=== PATIENT | male | born 1945 | race Caucasian/White ===

== ENCOUNTER 2018-04-13 12:10 | Inpatient (IN) | payer OTHER ==
[2018-04-13] MEDS ORDERED: Sodium Chloride 0.9% 10 ML Syringe FLUSH PRN (12:17)
[2018-04-13] MEDS ORDERED: Ondansetron 4 MG/2 ML SDV IVPUSH ONE (12:26)
[2018-04-13] MEDS ORDERED: Famotidine 20 MG/2 ML SDV IVPUSH ONE (12:26)
[2018-04-13] MEDS ORDERED: Pantoprazole 40 MG Vial IVPUSH ONE (12:42)
[2018-04-13] MEDS ORDERED: Sodium Chloride 0.9% 1,000 ML IV SCH ×2 (12:45→13:45)
--- NOTE | 2018-04-13 12:57 | EDM.PDOC ---
ED HPI GENERAL MEDICAL PROBLEM - General Chief Complaint: Gastrointestinal Problem Stated Complaint: [facility] Time Seen by Provider: 04/13/18 12:16 Source of Information: Reports: Patient, EMS, RN Notes Reviewed - History of Present Illness INITIAL COMMENTS - FREE TEXT/NARRATIVE: Patient is a 72-year-old male who has been brought here [facility] for evaluation of severe weakness and dizziness. He started having dark tarry stools about 6 days ago. He has been having 2-4 dark tarry stools per day. He has had a couple of episodes of vomiting of what he describes as being coffee ground type emesis. He has continued to drink water and other nonalcohol type of fluids "to maintain hydration. He has been waiting for this to get better but symptoms have been getting worse to the point where this morning after having been to the toilet he could not get up and walk without passing out. He managed to crawl to his phone and was able to call for help and that way. He has had no chest pain or difficulty breathing. No abdominal pain. He is on Plavix having had some type of arterial bypass procedure left lower extremity about a year ago. He has smoked for many years but has recently quit in the last year or 2. Sounds like he has probably drank alcohol more heavily in the past but now he states only a very occasional beer. He is not diabetic. 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: IV/IO, See EMS Report - Related Data Allergies Allergy/AdvReac Type Severity Reaction Status Date / Time No Known Allergies Allergy Verified 04/13/18 12:18 Home Meds: Home Meds Cephalexin [Keflex] 500 mg PO QID 04/13/18 [History] Clopidogrel [Plavix] 75 mg PO DAILY 04/13/18 [History] Cyanocobalamin (Vitamin B-12) [Vitamin B12] 2,500 mcg PO DAILY 04/13/18 [History ] Gabapentin [Neurontin] 100 mg PO TID 04/13/18 [History] Hydrochlorothiazide 25 mg PO DAILY 04/13/18 [History] Losartan [Cozaar] 100 mg PO DAILY 04/13/18 [History] Rosuvastatin Calcium [Crestor] 40 mg PO BEDTIME 04/13/18 [History] amLODIPine Besylate [Amlodipine Besylate] 5 mg PO DAILY 04/13/18 [History] tiZANidine HCl [Tizanidine HCl] 4 mg PO DAILY 04/13/18 [History] Past Medical History Cardiovascular History: Reports: Blood Clots/VTE/DVT, High Cholesterol, Hypertension Neurological History: Reports: Neuropathy, Peripheral - Past Surgical History Cardiovascular Surgical History: Reports: Percutaneous Transluminal Angioplasty Musculoskeletal Surgical History: Reports: Amputation Social & Family History - Tobacco Use Smoking Status *Q: Former Smoker Used Tobacco, but Quit: Yes Month/Year Tobacco Last Used: 2017 - Caffeine Use Caffeine Use: Reports: None - Recreational Drug Use Recreational Drug Use: No ED ROS GENERAL - Review of Systems Review Of Systems: See Below Constitutional: Reports: Diaphoresis (Gone). Denies: Fever, Chills HEENT: Denies: Throat Pain Respiratory: Denies: Shortness of Breath, Wheezing, Pleuritic Chest Pain Cardiovascular: Denies: Chest Pain GI/Abdominal: Reports: Hematemesis (Coffee-ground twice in the past 4-5 days), Melena, Nausea, Vomiting. Denies: Abdominal Pain Musculoskeletal: Reports: No Symptoms Skin: Denies: Rash Neurological: Reports: Dizziness (Severe), Syncope (Either did pass out this morning or had very near syncope after trying to get up from the toilet) ED EXAM, GI/ABD - Physical Exam Exam: See Below General Appearance: Alert, Other (Extremely pale) Eyes: Bilateral: Normal Appearance Throat/Mouth: Normal Inspection, Normal Oropharynx Head: Atraumatic Neck: Supple Respiratory/Chest: No Respiratory Distress, Lungs Clear, Normal Breath Sounds Cardiovascular: Regular Rate, Rhythm GI/Abdominal Exam: Soft, Non-Tender. No: Guarding Rectal (Males) Exam: Black Stool (Strongly heme positive) Back Exam: No: CVA Tenderness (L), CVA Tenderness (R) Extremities: Normal Inspection. No: Pedal Edema Neurological: Alert, No Motor/Sensory Deficits Skin Exam: Dry, Pallor EKG INTERPRETATION EKG Date: 04/13/18 Rhythm: NSR [place]: Normal P-Wave: Present QRS: Other (Nonspecific IVCD) ST-T: Normal Course - Vital Signs Last Recorded V/S: Last Vital Signs Temp 97.6 F 04/13/18 14:04 Pulse 72 04/13/18 14:04 Resp 16 04/13/18 14:04 BP 64/61 L 04/13/18 14:04 Pulse Ox - Orders/Labs/Meds Orders: Active Orders 24 hr Category Date Time Status EKG 12 Lead [EKG Documentation Completion] [RC] STAT Care 04/13/18 12:18 Active Peripheral IV Care [RC] . DIRECTED Care 04/13/18 12:18 Active PACKED CELLS [RED BLOOD CELLS LP] [BBK] Stat Lab 04/13/18 12:50 Results PATIENT RETYPE [BBK] Stat Lab 04/13/18 12:50 Results TYPE AND SCREEN [BBK] Stat Lab 04/13/18 12:50 Results Potassium Chloride [KCl 10 MEQ in Water 100 ML] 10 meq Med 04/13/18 13:45 Active Premix Bag 1 bag IV Q1H Sodium Chloride 0.9% [Normal Saline] 1,000 ml Med 04/13/18 12:45 Active IV ASDIRECTED Sodium Chloride 0.9% [Normal Saline] 1,000 ml Med 04/13/18 13:45 Active IV ASDIRECTED Sodium Chloride 0.9% [Normal Saline] 100 ml Med 04/13/18 14:00 Active IV ASDIRECTED Sodium Chloride 0.9% [Saline Flush] Med 04/13/18 12:17 Active 10 ml FLUSH ASDIRECTED PRN Peripheral IV Insertion Adult [OM.PC] Stat Oth 04/13/18 12:18 Ordered Transfuse PRBC [Transfuse Red Blood Cells] [COMM] Stat Oth 04/13/18 14:03 Ordered Medication Orders Sodium Chloride (Normal Saline) 1,000 mls @ 999 mls/hr IV ASDIRECTED ROSANNA Last Admin: 04/13/18 12:33 Dose: 999 mls/hr Sodium Chloride (Normal Saline) 1,000 mls @ 250 mls/hr IV ASDIRECTED ROSANNA Last Admin: 04/13/18 13:41 Dose: 250 mls/hr Potassium Chloride 10 meq/ (Premix) 100 mls @ 100 mls/hr IV Q1H ROSANNA Stop: 04/13/18 17:44 Last Admin: 04/13/18 13:41 Dose: 100 mls/hr Sodium Chloride (Normal Saline) 100 mls @ 2 mls/hr IV ASDIRECTED ROSANNA Sodium Chloride (Saline Flush) 10 ml FLUSH ASDIRECTED PRN PRN Reason: Keep Vein Open Last Admin: 04/13/18 12:31 Dose: 10 ml Labs: Laboratory Tests 04/13/18 04/13/18 04/13/18 Range/Units 12:50 12:50 12:50 WBC 18.49 H (4.23-9.07) K/mm3 RBC 2.06 L (4.63-6.08) M/mm3 Hgb 5.9 L* (13.7-17.5) gm/L Hct 18.8 L (40.1-51.0) % MCV 91.3 (79.0-92.2) fl MCH 28.6 (25.7-32.2) pg MCHC 31.4 L (32.2-35.5) g/dl RDW Std Deviation 43.0 (35.1-43.9) fL Plt Count 307 (163-337) K/mm3 MPV 10.9 (9.4-12.3) fl Neut % (Auto) 84.4 H (34.0-67.9) % Lymph % (Auto) 7.0 L (21.8-53.1) % [place] % (Auto) 7.0 (5.3-12.2) % Eos % (Auto) 0.9 (0.8-7.0) Baso % (Auto) 0.2 (0.1-1.2) % Neut # (Auto) 15.58 H (1.78-5.38) K/mm3 Lymph # (Auto) 1.30 L (1.32-3.57) K/mm3 [place] # (Auto) 1.30 H (0.30-0.82) K/mm3 Eos # (Auto) 0.17 (0.04-0.54) K/mm3 Baso # (Auto) 0.04 (0.01-0.08) K/mm3 Manual Slide Review Abnormal smear PT 11.9 (9.5-12.1) SECONDS INR 1.09 APTT 24 (24-31) SECONDS Sodium 141 (136-145) mEq/L Potassium 2.5 L (3.5-5.1) mEq/L Chloride 106 (98-107) mEq/L Carbon Dioxide 20 L (21-32) mEq/L Anion Gap 17.5 H (5-15) BUN 71 H (7-18) mg/dL Creatinine 3.3 H (0.7-1.3) mg/dL Est Cr Clr Drug Dosing 22.39 mL/min Estimated GFR (MDRD) 19 (>60) mL/min BUN/Creatinine Ratio 21.5 H (14-18) Glucose 103 (83-115) mg/dL Lactic Acid (0.4-2.0) mmol/L Calcium 8.5 (8.5-10.1) mg/dL Total Bilirubin 0.3 (0.2-1.0) mg/dL AST 13 L (15-37) U/L ALT < 6 L (16-63) U/L Alkaline Phosphatase 68 (46-116) U/L Total Protein 6.0 L (6.4-8.2) g/dl Albumin 2.3 L (3.4-5.0) g/dl Globulin 3.7 gm/dL Albumin/Globulin Ratio 0.6 L (1-2) Blood Type Gel Antibody Screen Crossmatch 04/13/18 04/13/18 Range/Units 12:50 12:50 WBC (4.23-9.07) K/mm3 RBC (4.63-6.08) M/mm3 Hgb (13.7-17.5) gm/L Hct (40.1-51.0) % MCV (79.0-92.2) fl MCH (25.7-32.2) pg MCHC (32.2-35.5) g/dl RDW Std Deviation (35.1-43.9) fL Plt Count (163-337) K/mm3 MPV (9.4-12.3) fl Neut % (Auto) (34.0-67.9) % Lymph % (Auto) (21.8-53.1) % [place] % (Auto) (5.3-12.2) % Eos % (Auto) (0.8-7.0) Baso % (Auto) (0.1-1.2) % Neut # (Auto) (1.78-5.38) K/mm3 Lymph # (Auto) (1.32-3.57) K/mm3 [place] # (Auto) (0.30-0.82) K/mm3 Eos # (Auto) (0.04-0.54) K/mm3 Baso # (Auto) (0.01-0.08) K/mm3 Manual Slide Review PT (9.5-12.1) SECONDS INR APTT (24-31) SECONDS Sodium (136-145) mEq/L Potassium (3.5-5.1) mEq/L Chloride (98-107) mEq/L Carbon Dioxide (21-32) mEq/L Anion Gap (5-15) BUN (7-18) mg/dL Creatinine (0.7-1.3) mg/dL Est Cr Clr Drug Dosing mL/min Estimated GFR (MDRD) (>60) mL/min BUN/Creatinine Ratio (14-18) Glucose (83-115) mg/dL Lactic Acid 5.5 H (0.4-2.0) mmol/L Calcium (8.5-10.1) mg/dL Total Bilirubin (0.2-1.0) mg/dL AST (15-37) U/L ALT (16-63) U/L Alkaline Phosphatase (46-116) U/L Total Protein (6.4-8.2) g/dl Albumin (3.4-5.0) g/dl Globulin gm/dL Albumin/Globulin Ratio (1-2) Blood Type O POSITIVE Gel Antibody Screen Negative Crossmatch See Detail Meds: Medications Generic Name Dose Route Start Last Admin Trade Name Freq PRN Reason Stop Dose Admin Sodium Chloride 1,000 mls @ 999 mls/hr 04/13/18 12:45 04/13/18 12:33 Normal Saline IV 999 mls/hr ASDIRECTED ROSANNA Administration Sodium Chloride 1,000 mls @ 250 mls/hr 04/13/18 13:45 04/13/18 13:41 Normal Saline IV 250 mls/hr ASDIRECTED ROSANNA Administration Potassium Chloride 10 meq/ 100 mls @ 100 mls/hr 04/13/18 13:45 04/13/18 13:41 Premix IV 04/13/18 17:44 100 mls/hr Q1H ROSANNA Administration Sodium Chloride 100 mls @ 2 mls/hr 04/13/18 14:00 Normal Saline IV ASDIRECTED ROSANNA Sodium Chloride 10 ml 04/13/18 12:17 04/13/18 12:31 Saline Flush FLUSH 10 ml ASDIRECTED PRN Administration Keep Vein Open Discontinued Medications Generic Name Dose Route Start Last Admin Trade Name Freq PRN Reason Stop Dose Admin Famotidine 20 mg 04/13/18 12:26 04/13/18 12:30 Pepcid IVPUSH 04/13/18 12:27 20 mg ONETIME ONE Administration Ondansetron HCl 4 mg 04/13/18 12:26 04/13/18 12:30 Zofran IVPUSH 04/13/18 12:27 4 mg ONETIME ONE Administration Pantoprazole Sodium 40 mg 04/13/18 12:42 04/13/18 12:49 Protonix Iv IVPUSH 04/13/18 12:43 40 mg ONETIME ONE Administration - Re-Assessments/Exams Free Text/Narrative Re-Assessment/Exam: 04/13/18 13:02 Patient had blood pressure of about 75 systolic in route by ambulance and continues with blood pressure of 75/35 on arrival to the ED. That is lying flat , heart rate in the 70s. He is extremely pale, stool melanotic strongly heme positive. I have ordered type and screen along with order for 2 units packed cells for transfusion. It is expected that he will be quite severely anemic. He' s never had transfusion in the past. No history of bleeding ulcer or known peptic ulcer disease. 04/13/18 13:35. Hemoglobin 5.9, other labs as documented, potassium 2.5 started running some potassium 10 mEq IV over 2 hours. Blood pressure improved to 110 systolic after 1.75 L normal saline. Blood should be ready any time and will be started as soon as available. I discussed this with Dr. Viktor Baltazar, general surgeon on-call so he is aware and patient will be admitted by our Hospitalist regional clinical research associate Dr. Veronica for further evaluation and treatment Departure - Departure Time of Disposition: 13:50 Disposition: Admitted As Inpatient 67 Condition: Serious Clinical Impression: Hypokalemia, Renal insufficiency, Dehydration GI bleed Qualifiers: GI bleed type/associated pathology: unspecified gastrointestinal hemorrhage type Qualified Code(s): K92.2 - Gastrointestinal hemorrhage, unspecified - Discharge Information Referrals: Sarika Gannon DO [Primary Care Provider] - Forms: ED Department Discharge ED Communication - Discussed Case With (1) Discussed Case With (1): Admitting Provider (Dr Veronica, decision to admit at about 13:45.) - My Orders Last 24 Hours: My Active Orders 04/13/18 12:17 Sodium Chloride 0.9% [Saline Flush] 10 ml FLUSH ASDIRECTED PRN 04/13/18 12:18 EKG 12 Lead [EKG Documentation Completion] [RC] STAT Peripheral IV Care [RC] . DIRECTED Peripheral IV Insertion Adult [OM.PC] Stat 04/13/18 12:45 Sodium Chloride 0.9% [Normal Saline] 1,000 ml IV ASDIRECTED 04/13/18 12:50 PACKED CELLS [RED BLOOD CELLS LP] [BBK] Stat PATIENT RETYPE [BBK] Stat TYPE AND SCREEN [BBK] Stat 04/13/18 13:45 Potassium Chloride [KCl 10 MEQ in Water 100 ML] 10 meq Premix Bag 1 bag IV Q1H Sodium Chloride 0.9% [Normal Saline] 1,000 ml IV ASDIRECTED 04/13/18 14:00 Sodium Chloride 0.9% [Normal Saline] 100 ml IV ASDIRECTED 04/13/18 14:03 Transfuse PRBC [Transfuse Red Blood Cells] [COMM] Stat - Assessment/Plan Last 24 Hours: My Active Orders 04/13/18 12:17 Sodium Chloride 0.9% [Saline Flush] 10 ml FLUSH ASDIRECTED PRN 04/13/18 12:18 EKG 12 Lead [EKG Documentation Completion] [RC] STAT Peripheral IV Care [RC] . DIRECTED Peripheral IV Insertion Adult [OM.PC] Stat 04/13/18 12:45 Sodium Chloride 0.9% [Normal Saline] 1,000 ml IV ASDIRECTED 04/13/18 12:50 PACKED CELLS [RED BLOOD CELLS LP] [BBK] Stat PATIENT RETYPE [BBK] Stat TYPE AND SCREEN [BBK] Stat 04/13/18 13:45 Potassium Chloride [KCl 10 MEQ in Water 100 ML] 10 meq Premix Bag 1 bag IV Q1H Sodium Chloride 0.9% [Normal Saline] 1,000 ml IV ASDIRECTED 04/13/18 14:00 Sodium Chloride 0.9% [Normal Saline] 100 ml IV ASDIRECTED 04/13/18 14:03 Transfuse PRBC [Transfuse Red Blood Cells] [COMM] Stat
[2018-04-13] MEDS: Potassium Chloride 10 MEQ in Premix Bag 1 BAG IV SCH ×4 (13:41→23:50)
[2018-04-13] MEDS ORDERED: Sodium Chloride 0.9% 100 ML IV SCH (14:00)
[2018-04-13] MEDS ORDERED: Pneumococcal Polyvalent-23 Vaccine 0.5 ML SDV IM ONE (15:32)
--- NOTE | 2018-04-13 16:48 | PCM.HP ---
H&P History of Present Illness - General Date of Service: 04/13/18 Admit Problem/Dx: Admission Diagnosis/Problem Admission Diagnosis/Problem GI bleed requiring more than 4 units of blood in 24 hours, ICU, or surgery Source of Information: Provider History Limitations: Reports: No Limitations - History of Present Illness Initial Comments - Free Text/Narative: 72 year old male who has been bleeding when passing stool, presents with extreme dizziness/weakness. On the day of admission, he had a bloody bowel movement and was unable to ambulate. The patient crawled on the floor to his phone, EMS was called to his home. Vital signs noted hypotension, 64/61. he was typed and screened in the ED. A transfusion of PRBCs was started in the ED. An additional type and crossed was performed; the patient is expected to receive 2 units of PRBCs before repeating a Hgb. The general surgeon generation engineer was notified by the ED and called Onset of Symptoms: Reports: Gradual Symptom Onset Date: 04/08/18 Duration of Symptoms: Reports: Day(s):, Getting Worse Location: Reports: Generalized Quality: Reports: Same as Previous Episode Severity: Moderate Improves with: Reports: Medication Worsens with: Reports: Movement Associated Symptoms: Reports: Diaphoresis, Shortness of Breath, Other ( presyncopal) - Related Data Allergies/Adverse Reactions: Allergies Allergy/AdvReac Type Severity Reaction Status Date / Time No Known Allergies Allergy Verified 04/13/18 12:18 Home Medications: Home Meds Cephalexin [Keflex] 500 mg PO QID 04/13/18 [History] Clopidogrel [Plavix] 75 mg PO DAILY 04/13/18 [History] Cyanocobalamin (Vitamin B-12) [Vitamin B12] 2,500 mcg PO DAILY 04/13/18 [History ] Gabapentin [Neurontin] 100 mg PO TID 04/13/18 [History] Hydrochlorothiazide 25 mg PO DAILY 04/13/18 [History] Losartan [Cozaar] 100 mg PO DAILY 04/13/18 [History] Rosuvastatin Calcium [Crestor] 40 mg PO BEDTIME 04/13/18 [History] amLODIPine Besylate [Amlodipine Besylate] 5 mg PO DAILY 04/13/18 [History] tiZANidine HCl [Tizanidine HCl] 4 mg PO QPM PRN 04/13/18 [History] Past Medical History HEENT History: Reports: Impaired Vision Cardiovascular History: Reports: Blood Clots/VTE/DVT, High Cholesterol, Hypertension Respiratory History: Reports: None Gastrointestinal History: Reports: None Genitourinary History: Reports: Pyelonephritis, Other (See Below) Other Genitourinary History: as a child Musculoskeletal History: Reports: Back Pain, Chronic Neurological History: Reports: Neuropathy, Peripheral Endocrine/Metabolic History: Reports: None Other Hematologic History: too many RBCs per patient report but now resolved Immunologic History: Reports: None Oncologic (Cancer) History: Reports: None Dermatologic History: Reports: None - Infectious Disease History Infectious Disease History: Reports: Hepatitis C, Measles, Mumps - Past Surgical History HEENT Surgical History: Reports: Tonsillectomy Cardiovascular Surgical History: Reports: Percutaneous Transluminal Angioplasty Respiratory Surgical History: Reports: None GI Surgical History: Reports: Colonoscopy Male Surgical History: Reports: None Neurological Surgical History: Reports: None Musculoskeletal Surgical History: Reports: Amputation Other Musculoskeletal Surgeries/Procedures:: left 3rd, 4th and 5th digit Dermatological Surgical History: Reports: None Social & Family History - Family History Family Medical History: Noncontributory - Tobacco Use Smoking Status *Q: Former Smoker Years of Tobacco use: 52 Packs/Tins Daily: 2 Used Tobacco, but Quit: Yes Month/Year Tobacco Last Used: July 2017 Second Hand Smoke Exposure: No - Caffeine Use Caffeine Use: Reports: Soda - Alcohol Use Days Per Week of Alcohol Use: 0 - Recreational Drug Use Recreational Drug Use: No H&P Review of Systems - Review of Systems: Review Of Systems: See Below General: Reports: Weakness, Fatigue, Weight Loss HEENT: Reports: No Symptoms Pulmonary: Reports: Shortness of Breath Cardiovascular: Reports: Palpitations, Lightheadedness Gastrointestinal: Reports: Abdominal Pain (no), Black Stool, Nausea, Vomiting Genitourinary: Reports: No Symptoms Musculoskeletal: Reports: No Symptoms Skin: Reports: Dryness, Change in Color (black toes) Psychiatric: Reports: No Symptoms Neurological: Reports: Dizziness, Weakness, Other (presyncopal) Hematologic/Lymphatic: Reports: Anemia (acute blood loss) Immunologic: Reports: No Symptoms Exam - Exam Exam: See Below - Vital Signs Vital Signs: Last Vital Signs Temp 36.5 C 04/13/18 15:13 Pulse 78 04/13/18 15:50 Resp 16 04/13/18 15:13 BP 94/72 04/13/18 15:13 Pulse Ox 100 04/13/18 15:50 Weight: 76.34 kg - Exam Quality Assessment: Supplemental Oxygen, DVT Prophylaxis General: Alert, Oriented, Cooperative HEENT: Conjunctiva Clear, EOMI, Hearing Intact, Nares Patent, Other (pallor), PERRLA Neck: Trachea Midline Lungs: Normal Respiratory Effort, Decreased Breath Sounds Cardiovascular: Regular Rate, Regular Rhythm GI/Abdominal Exam: Normal Bowel Sounds, Soft, Non-Tender, No Organomegaly, No Distention (Male) Exam: Deferred Rectal (Males) Exam: Deferred Back Exam: Normal Inspection Extremities: Slow Capillary Refill, Pallor Skin: Cool Neurological: Cranial Nerves Intact, Normal Speech Neuro Extensive - Mental Status: Alert, Oriented x3, Normal Mood/Affect, Normal Cognition, Memory Intact Neuro Extensive - Motor, Sensory, Reflexes: CN II-XII Intact Psychiatric: Alert, Normal Affect, Normal Mood - Patient Data Lab Results Last 24 hrs: Laboratory Results - last 24 hr 04/13/18 04/13/18 04/13/18 Range/Units 12:50 12:50 12:50 WBC 18.49 H (4.23-9.07) K/mm3 RBC 2.06 L (4.63-6.08) M/mm3 Hgb 5.9 L* (13.7-17.5) gm/L Hct 18.8 L (40.1-51.0) % MCV 91.3 (79.0-92.2) fl MCH 28.6 (25.7-32.2) pg MCHC 31.4 L (32.2-35.5) g/dl RDW Std Deviation 43.0 (35.1-43.9) fL Plt Count 307 (163-337) K/mm3 MPV 10.9 (9.4-12.3) fl Neut % (Auto) 84.4 H (34.0-67.9) % Lymph % (Auto) 7.0 L (21.8-53.1) % [place] % (Auto) 7.0 (5.3-12.2) % Eos % (Auto) 0.9 (0.8-7.0) Baso % (Auto) 0.2 (0.1-1.2) % Neut # (Auto) 15.58 H (1.78-5.38) K/mm3 Lymph # (Auto) 1.30 L (1.32-3.57) K/mm3 [place] # (Auto) 1.30 H (0.30-0.82) K/mm3 Eos # (Auto) 0.17 (0.04-0.54) K/mm3 Baso # (Auto) 0.04 (0.01-0.08) K/mm3 Manual Slide Review Abnormal smear PT 11.9 (9.5-12.1) SECONDS INR 1.09 APTT 24 (24-31) SECONDS Sodium 141 (136-145) mEq/L Potassium 2.5 L (3.5-5.1) mEq/L Chloride 106 (98-107) mEq/L Carbon Dioxide 20 L (21-32) mEq/L Anion Gap 17.5 H (5-15) BUN 71 H (7-18) mg/dL Creatinine 3.3 H (0.7-1.3) mg/dL Est Cr Clr Drug Dosing 22.39 mL/min Estimated GFR (MDRD) 19 (>60) mL/min BUN/Creatinine Ratio 21.5 H (14-18) Glucose 103 (83-115) mg/dL Lactic Acid (0.4-2.0) mmol/L Calcium 8.5 (8.5-10.1) mg/dL Total Bilirubin 0.3 (0.2-1.0) mg/dL AST 13 L (15-37) U/L ALT < 6 L (16-63) U/L Alkaline Phosphatase 68 (46-116) U/L Total Protein 6.0 L (6.4-8.2) g/dl Albumin 2.3 L (3.4-5.0) g/dl Globulin 3.7 gm/dL Albumin/Globulin Ratio 0.6 L (1-2) Blood Type Gel Antibody Screen Crossmatch 04/13/18 04/13/18 Range/Units 12:50 12:50 WBC (4.23-9.07) K/mm3 RBC (4.63-6.08) M/mm3 Hgb (13.7-17.5) gm/L Hct (40.1-51.0) % MCV (79.0-92.2) fl MCH (25.7-32.2) pg MCHC (32.2-35.5) g/dl RDW Std Deviation (35.1-43.9) fL Plt Count (163-337) K/mm3 MPV (9.4-12.3) fl Neut % (Auto) (34.0-67.9) % Lymph % (Auto) (21.8-53.1) % [place] % (Auto) (5.3-12.2) % Eos % (Auto) (0.8-7.0) Baso % (Auto) (0.1-1.2) % Neut # (Auto) (1.78-5.38) K/mm3 Lymph # (Auto) (1.32-3.57) K/mm3 [place] # (Auto) (0.30-0.82) K/mm3 Eos # (Auto) (0.04-0.54) K/mm3 Baso # (Auto) (0.01-0.08) K/mm3 Manual Slide Review PT (9.5-12.1) SECONDS INR APTT (24-31) SECONDS Sodium (136-145) mEq/L Potassium (3.5-5.1) mEq/L Chloride (98-107) mEq/L Carbon Dioxide (21-32) mEq/L Anion Gap (5-15) BUN (7-18) mg/dL Creatinine (0.7-1.3) mg/dL Est Cr Clr Drug Dosing mL/min Estimated GFR (MDRD) (>60) mL/min BUN/Creatinine Ratio (14-18) Glucose (83-115) mg/dL Lactic Acid 5.5 H (0.4-2.0) mmol/L Calcium (8.5-10.1) mg/dL Total Bilirubin (0.2-1.0) mg/dL AST (15-37) U/L ALT (16-63) U/L Alkaline Phosphatase (46-116) U/L Total Protein (6.4-8.2) g/dl Albumin (3.4-5.0) g/dl Globulin gm/dL Albumin/Globulin Ratio (1-2) Blood Type O POSITIVE Gel Antibody Screen Negative Crossmatch See Detail Result Diagrams: 04/13/18 22:00 04/14/18 00:28 Problem List Initiated/Reviewed/Updated: Yes Orders Last 24hrs: Active Orders 24 hr Category Date Time Status Admission Status [Patient Status] [ADT] Routine ADT 04/13/18 14:31 Active EKG 12 Lead [EKG Documentation Completion] [RC] STAT Care 04/13/18 12:18 Active PACKED CELLS [RED BLOOD CELLS LP] [BBK] Stat Lab 04/13/18 12:50 Results PATIENT RETYPE [BBK] Stat Lab 04/13/18 12:50 Results TYPE AND SCREEN [BBK] Stat Lab 04/13/18 12:50 Results Clopidogrel [Plavix] Med 04/14/18 09:00 Active 75 mg PO DAILY Cyanocobalamin (Vitamin B12) [Vitamin B12] Med 04/14/18 09:00 Active 2,500 mcg PO DAILY Gabapentin [Neurontin] Med 04/13/18 21:00 Active 100 mg PO TID Potassium Chloride [KCl 10 MEQ in Water 100 ML] 10 meq Med 04/13/18 13:45 Active Premix Bag 1 bag IV Q1H Rosuvastatin [Crestor] Med 04/13/18 21:00 Active 40 mg PO BEDTIME Sodium Chloride 0.9% [Normal Saline] 1,000 ml Med 04/13/18 12:45 Active IV ASDIRECTED Sodium Chloride 0.9% [Normal Saline] 1,000 ml Med 04/13/18 13:45 Active IV ASDIRECTED Sodium Chloride 0.9% [Normal Saline] 100 ml Med 04/13/18 14:00 Active IV ASDIRECTED Sodium Chloride 0.9% [Saline Flush] Med 04/13/18 12:17 Active 10 ml FLUSH ASDIRECTED PRN tiZANidine [Zanaflex] Med 04/14/18 09:00 Active 4 mg PO DAILY Peripheral IV Insertion Adult [OM.PC] Stat Oth 04/13/18 12:18 Ordered Transfuse PRBC [Transfuse Red Blood Cells] [COMM] Stat Oth 04/13/18 14:03 Ordered Resuscitation Status Routine Resus Stat 04/13/18 15:42 Ordered Medication Orders Clopidogrel Bisulfate (Plavix) 75 mg PO DAILY [facility] Cyanocobalamin (Vitamin B12) 2,500 mcg PO DAILY [facility] Gabapentin (Neurontin) 100 mg PO TID ROSANNA Sodium Chloride (Normal Saline) 1,000 mls @ 999 mls/hr IV ASDIRECTED ROSANNA Last Admin: 04/13/18 12:33 Dose: 999 mls/hr Sodium Chloride (Normal Saline) 1,000 mls @ 250 mls/hr IV ASDIRECTED ROSANNA Last Admin: 04/13/18 13:41 Dose: 250 mls/hr Potassium Chloride 10 meq/ (Premix) 100 mls @ 100 mls/hr IV Q1H [facility] Stop: 04/13/18 17:44 Last Admin: 04/13/18 16:03 Dose: Admin: 04/13/18 13:41 Dose: 100 mls/hr Sodium Chloride (Normal Saline) 100 mls @ 2 mls/hr IV ASDIRECTED ROSANNA Rosuvastatin Calcium (Crestor) 40 mg PO BEDTIME [facility] Sodium Chloride (Saline Flush) 10 ml FLUSH ASDIRECTED PRN PRN Reason: Keep Vein Open Last Admin: 04/13/18 12:31 Dose: 10 ml Tizanidine HCl (Zanaflex) 4 mg PO DAILY [facility] Assessment/Plan Comment:: Impression: Hypotension, acute GI blood loss; Hgb 5.9 Symptomatic, presyncopal Acute Renal Failure, GFR 19 (BUN 71/Cr 3.3) Leukocyctosis; query soft tissue infection with chronic skin changes PVD, query aorto-bifem procedure Abnormal electrolytes History of ETOH Plan: Type and Cross, 2 units PRBCs; additional T/C for 2 more units Keep Hgb>9.0; maintain MAP/SBP, 65/100 Closely monitor for hemodynamic change from acute blood loss (BM) Lasix 40 mg IVP q 2 units Protonix IV; hold hypertensive meds H Pylori test Home meds Daily labs, correct electrolytes Gen Surg consult--pending. Empiric ATB DVT/GI prophylaxis Consult PT/OT/CM
[2018-04-13] MEDS ORDERED: Acetaminophen 325 MG Tab PO PRN (17:10)
[2018-04-13] MEDS ORDERED: Temazepam 7.5 MG Cap PO PRN (18:08)
[2018-04-13] MEDS ORDERED: Piperacillin/Tazobactam 4.5 GM in Sodium Chloride 0.9% 100 ML IV ONE (18:15)
--- NOTE | 2018-04-13 19:16 | PCM.CONSN ---
- General Info Date of Service: 04/13/18 - Patient Data Vitals - Most Recent: Last Vital Signs Temp 97.7 F 04/13/18 17:19 Pulse 83 04/13/18 17:19 Resp 16 04/13/18 16:57 BP 98/63 04/13/18 17:19 Pulse Ox 100 04/13/18 16:51 Weight - Most Recent: 76.34 kg I&O - Last 24 Hours: Intake & Output 04/13/18 04/13/18 04/13/18 07:59 15:59 23:59 Intake Total 0 430 Balance 0 430 Lab Results Last 24 Hours: Laboratory Results - last 24 hr 04/13/18 04/13/18 04/13/18 Range/Units 12:50 12:50 12:50 WBC 18.49 H (4.23-9.07) K/mm3 RBC 2.06 L (4.63-6.08) M/mm3 Hgb 5.9 L* (13.7-17.5) gm/L Hct 18.8 L (40.1-51.0) % MCV 91.3 (79.0-92.2) fl MCH 28.6 (25.7-32.2) pg MCHC 31.4 L (32.2-35.5) g/dl RDW Std Deviation 43.0 (35.1-43.9) fL Plt Count 307 (163-337) K/mm3 MPV 10.9 (9.4-12.3) fl Neut % (Auto) 84.4 H (34.0-67.9) % Lymph % (Auto) 7.0 L (21.8-53.1) % [place] % (Auto) 7.0 (5.3-12.2) % Eos % (Auto) 0.9 (0.8-7.0) Baso % (Auto) 0.2 (0.1-1.2) % Neut # (Auto) 15.58 H (1.78-5.38) K/mm3 Lymph # (Auto) 1.30 L (1.32-3.57) K/mm3 [place] # (Auto) 1.30 H (0.30-0.82) K/mm3 Eos # (Auto) 0.17 (0.04-0.54) K/mm3 Baso # (Auto) 0.04 (0.01-0.08) K/mm3 Manual Slide Review Abnormal smear PT 11.9 (9.5-12.1) SECONDS INR 1.09 APTT 24 (24-31) SECONDS Sodium 141 (136-145) mEq/L Potassium 2.5 L (3.5-5.1) mEq/L Chloride 106 (98-107) mEq/L Carbon Dioxide 20 L (21-32) mEq/L Anion Gap 17.5 H (5-15) BUN 71 H (7-18) mg/dL Creatinine 3.3 H (0.7-1.3) mg/dL Est Cr Clr Drug Dosing 22.39 mL/min Estimated GFR (MDRD) 19 (>60) mL/min BUN/Creatinine Ratio 21.5 H (14-18) Glucose 103 (83-115) mg/dL Lactic Acid (0.4-2.0) mmol/L Calcium 8.5 (8.5-10.1) mg/dL Total Bilirubin 0.3 (0.2-1.0) mg/dL AST 13 L (15-37) U/L ALT < 6 L (16-63) U/L Alkaline Phosphatase 68 (46-116) U/L Total Protein 6.0 L (6.4-8.2) g/dl Albumin 2.3 L (3.4-5.0) g/dl Globulin 3.7 gm/dL Albumin/Globulin Ratio 0.6 L (1-2) Blood Type Gel Antibody Screen Crossmatch 04/13/18 04/13/18 Range/Units 12:50 12:50 WBC (4.23-9.07) K/mm3 RBC (4.63-6.08) M/mm3 Hgb (13.7-17.5) gm/L Hct (40.1-51.0) % MCV (79.0-92.2) fl MCH (25.7-32.2) pg MCHC (32.2-35.5) g/dl RDW Std Deviation (35.1-43.9) fL Plt Count (163-337) K/mm3 MPV (9.4-12.3) fl Neut % (Auto) (34.0-67.9) % Lymph % (Auto) (21.8-53.1) % [place] % (Auto) (5.3-12.2) % Eos % (Auto) (0.8-7.0) Baso % (Auto) (0.1-1.2) % Neut # (Auto) (1.78-5.38) K/mm3 Lymph # (Auto) (1.32-3.57) K/mm3 [place] # (Auto) (0.30-0.82) K/mm3 Eos # (Auto) (0.04-0.54) K/mm3 Baso # (Auto) (0.01-0.08) K/mm3 Manual Slide Review PT (9.5-12.1) SECONDS INR APTT (24-31) SECONDS Sodium (136-145) mEq/L Potassium (3.5-5.1) mEq/L Chloride (98-107) mEq/L Carbon Dioxide (21-32) mEq/L Anion Gap (5-15) BUN (7-18) mg/dL Creatinine (0.7-1.3) mg/dL Est Cr Clr Drug Dosing mL/min Estimated GFR (MDRD) (>60) mL/min BUN/Creatinine Ratio (14-18) Glucose (83-115) mg/dL Lactic Acid 5.5 H (0.4-2.0) mmol/L Calcium (8.5-10.1) mg/dL Total Bilirubin (0.2-1.0) mg/dL AST (15-37) U/L ALT (16-63) U/L Alkaline Phosphatase (46-116) U/L Total Protein (6.4-8.2) g/dl Albumin (3.4-5.0) g/dl Globulin gm/dL Albumin/Globulin Ratio (1-2) Blood Type O POSITIVE Gel Antibody Screen Negative Crossmatch See Detail Med Orders - Current: Current Medications Acetaminophen (Tylenol) 650 mg PO Q4H PRN PRN Reason: Pain/Fever Last Admin: 04/13/18 17:27 Dose: 650 mg Cyanocobalamin (Vitamin B12) 2,500 mcg PO DAILY [facility] Gabapentin (Neurontin) 100 mg PO TID ROSANNA Piperacillin Sod/Tazobactam (Sod 4.5 gm/ Sodium Chloride) 100 mls @ 25 mls/hr IV Q8H [facility]AN[facility] Pantoprazole Sodium (Protonix Iv) 40 mg IVPUSH Q12H [facility] Potassium Chloride (Klor-Con M20) 40 meq PO TID [facility] Stop: 04/15/18 15:01 Rosuvastatin Calcium (Crestor) 40 mg PO BEDTIME [facility] Sodium Chloride (Saline Flush) 10 ml FLUSH ASDIRECTED PRN PRN Reason: Keep Vein Open Last Admin: 04/13/18 12:31 Dose: 10 ml Temazepam (Restoril) 7.5 mg PO BEDTIME PRN PRN Reason: Insomnia Tizanidine HCl (Zanaflex) 4 mg PO BEDTIME [facility] Discontinued Medications Clopidogrel Bisulfate (Plavix) 75 mg PO DAILY [facility] Famotidine (Pepcid) 20 mg IVPUSH ONETIME ONE Stop: 04/13/18 12:27 Last Admin: 04/13/18 12:30 Dose: 20 mg Sodium Chloride (Normal Saline) 1,000 mls @ 999 mls/hr IV ASDIRECTED [facility] Last Admin: 04/13/18 12:33 Dose: 999 mls/hr Sodium Chloride (Normal Saline) 1,000 mls @ 250 mls/hr IV ASDIRECTED [facility] Last Admin: 04/13/18 13:41 Dose: 250 mls/hr Potassium Chloride 10 meq/ (Premix) 100 mls @ 100 mls/hr IV Q1H [facility] Stop: 04/13/18 17:44 Last Admin: 04/13/18 17:30 Dose: Not Given Sodium Chloride (Normal Saline) 100 mls @ 2 mls/hr IV ASDIRECTED [facility] Piperacillin Sod/Tazobactam (Sod 4.5 gm/ Sodium Chloride) 100 mls @ 200 mls/hr IV ONETIME ONE Stop: 04/13/18 18:44 Last Admin: 04/13/18 18:31 Dose: 200 mls/hr Ondansetron HCl (Zofran) 4 mg IVPUSH ONETIME ONE Stop: 04/13/18 12:27 Last Admin: 04/13/18 12:30 Dose: 4 mg Pantoprazole Sodium (Protonix Iv) 40 mg IVPUSH ONETIME ONE Stop: 04/13/18 12:43 Last Admin: 04/13/18 12:49 Dose: 40 mg Pneumococcal Polyvalent Vaccine (Pneumovax 23) 0.5 ml IM .ONCE ONE Stop: 04/13/18 15:33 Consult PN Assessment/Plan Procedures: Procedures CT ABDOMEN W/O & W/DYE (06/30/14) Problem List Initiated/Reviewed/Updated: Yes Plan: surgical consult dictated JUSTINE
--- NOTE | 2018-04-13 19:51 | CONS ---
CONSULTING PHYSICIAN: Viktor Martinez MD DATE OF CONSULTATION: 04/13/2018 HISTORY OF PRESENT ILLNESS: This is a 72-year-old male, brought here to [facility] because of weakness and dizziness. He started having dark tarry stools around Sunday, with this proceeded 1 episode of vomiting of coffee-ground material and Sunday, he had a dark tarry stool and also vomited coffee-ground material. He continued having black tarry stools, but no further vomiting. He was unable to get out of the toilet and walk today, so he came in. Evaluation in the emergency room demonstrated a hemoglobin of 5.9. The patient states he has a peripheral vascular disease. He has had a femoral-tibial bypass that has been a subject of some concern by Dr. Rojas in [place] and he is waiting for approval for CT to further evaluate this. He was placed on Xarelto, this was discontinued because he has been on Plavix. The patient also states that the last month he has had pain in the back high in between on the right, sometimes on the left. This is especially bad at night, he has been taking Aleve for this pain. He has also had a drinking problem some time ago, he stopped drinking and also stopped smoking. He has had hepatitis C, but has been treated and [facility] feels that this is no longer problem. His liver function has not been a concern to the patient and to the [facility]. The patient has hypertension, high cholesterol, peripheral neuropathy in his feet, and peripheral arterial disease. PAST SURGICAL HISTORY: Has been transluminal angioplasty. SOCIAL HISTORY: He was a former smoker and drinker. No drug use. REVIEW OF SYSTEMS: He has some pain in the feet and some neuropathy, which is quite irritating to the patient. High back pain that has been recent about a month, nausea, vomiting, coffee-ground material, and having daily black tarry stools. The patient denies any chest pain or shortness of breath, cough, hoarseness, or wheezing. He had some near fainting episodes. Denies any rash. Some dizziness. FAMILY HISTORY: Not known. PHYSICAL EXAMINATION: VITAL SIGNS: Temperature 97; pulse 72; respirations 16; blood pressure was 64/61 and this improved with hydration, he is receiving blood as we talk. HEENT: Eyes: Sclerae white. Extraocular muscle motion normal. Oral Cavity: Healthy mucous membrane with mouth and tongue. NECK: Supple. No nodes. No thyromegaly. Trachea midline. LUNGS: Distant breath sounds due to some chronic lung disease. HEART: Heart tones, regular rate. ABDOMEN: Soft. No tenderness, guarding, or rebound. No organomegaly of the liver or spleen. RECTAL: Deferred at this time. BACK: Grossly unremarkable. EXTREMITIES: Show heel ulcer on the right with the 3rd toe with some dry gangrene. Feet are very sensitive throughout. NEUROLOGIC: Cranial nerves 3 through 12 intact. SKIN: Warm and dry. PSYCHIATRIC: Normal affect. LABORATORY DATA: Platelet count is normal. ASSESSMENT: 1. Peripheral vascular disease, peripheral neuropathy due to peripheral vascular disease with a surgery on the left leg. 2. Secondly, there is gastrointestinal bleeding secondary to what sounds like a penetrating duodenal ulcer, aggravated by use to Aleve. RECOMMENDATION: My recommendation is to transfuse, stop the Plavix, put him on a continuous proton pump and test for H. pylori. I will follow. MMODAL /[id number]
[2018-04-13] MEDS ORDERED: Rosuvastatin 10 MG Tab PO SCH (21:00)
[2018-04-13] MEDS ORDERED: tiZANidine 4 MG Tab PO SCH (21:00)
[2018-04-13] MEDS ORDERED: Potassium Chloride 20 MEQ Tab.ER PO SCH (21:00)
[2018-04-13] MEDS ORDERED: Pantoprazole 40 MG Vial IVPUSH SCH (21:00)
[2018-04-13] MEDS ORDERED: Gabapentin 100 MG Cap PO SCH (21:00)
[2018-04-13] MEDS ORDERED: Pantoprazole 80 MG in Sodium Chloride 0.9% 100 ML IV SCH (21:15)
[2018-04-13] MEDS ORDERED: Sodium Chloride 0.9% 250 ML ONE (23:20)
[2018-04-13] MEDS ORDERED: Sodium Chloride 0.9% 50 ML SDV ONE (23:36)
[2018-04-13] MEDS ORDERED: EPINEPHrine 1 MG/ML SDV ONE (23:36)
--- NOTE | 2018-04-13 23:50 | PCM.PREANE ---
Preanesthetic Assessment - Anesthesia/Transfusion/Family Hx Anesthesia History: No Prior Anesthesia Family History of Anesthesia Reaction: No Transfusion History: Prior Transfusion Without Reaction - Review of Systems General: Weakness, Fatigue (6 days) Pulmonary: No Symptoms Cardiovascular: No Symptoms Gastrointestinal: Diarrhea (bloody stools), Melena Neurological: No Symptoms Other: Reports: Liver Problems (hepatitis C) - Physical Assessment NPO Status Date: 04/13/18 NPO Status Time: 12:00 (sip of water with pills) Pulse: 82 O2 Sat by Pulse Oximetry: 100 Respiratory Rate: 18 Blood Pressure: 91/70 Temperature: 98.4 F Vital Signs: Last Vital Signs Temp 98.4 F 04/13/18 20:05 Pulse 82 04/13/18 20:05 Resp 18 04/13/18 20:05 BP 91/70 04/13/18 20:05 Pulse Ox 100 04/13/18 20:05 Height: 6 ft 1 in Weight: 76.34 kg ASA Class: 4E Mental Status: Alert & Oriented x3 Airway Class: Mallampati = 1 Dentition: Reports: Dentures (top), Missing Tooth/Teeth Thyro-Mental Finger Breadths: 3 Mouth Opening Finger Breadths: 3 ROM/Head Extension: Full Lungs: Clear to Auscultation, Normal Respiratory Effort Cardiovascular: Regular Rate, Regular Rhythm - Lab Values: Laboratory Last Values WBC 18.49 K/mm3 (4.23-9.07) H 04/13/18 12:50 RBC 2.06 M/mm3 (4.63-6.08) L 04/13/18 12:50 Hgb 8.5 gm/L (13.7-17.5) L 04/13/18 22:00 Hct 25.2 % (40.1-51.0) L 04/13/18 22:00 MCV 91.3 fl (79.0-92.2) 04/13/18 12:50 MCH 28.6 pg (25.7-32.2) 04/13/18 12:50 MCHC 31.4 g/dl (32.2-35.5) L 04/13/18 12:50 RDW Std Deviation 43.0 fL (35.1-43.9) 04/13/18 12:50 Plt Count 307 K/mm3 (163-337) 04/13/18 12:50 MPV 10.9 fl (9.4-12.3) 04/13/18 12:50 Neut % (Auto) 84.4 % (34.0-67.9) H 04/13/18 12:50 Lymph % (Auto) 7.0 % (21.8-53.1) L 04/13/18 12:50 [place] % (Auto) 7.0 % (5.3-12.2) 04/13/18 12:50 Eos % (Auto) 0.9 (0.8-7.0) 04/13/18 12:50 Baso % (Auto) 0.2 % (0.1-1.2) 04/13/18 12:50 Neut # (Auto) 15.58 K/mm3 (1.78-5.38) H 04/13/18 12:50 Lymph # (Auto) 1.30 K/mm3 (1.32-3.57) L 04/13/18 12:50 [place] # (Auto) 1.30 K/mm3 (0.30-0.82) H 04/13/18 12:50 Eos # (Auto) 0.17 K/mm3 (0.04-0.54) 04/13/18 12:50 Baso # (Auto) 0.04 K/mm3 (0.01-0.08) 04/13/18 12:50 Manual Slide Review Abnormal smear 04/13/18 12:50 PT 11.9 SECONDS (9.5-12.1) 04/13/18 12:50 INR 1.09 04/13/18 12:50 APTT 24 SECONDS (24-31) 04/13/18 12:50 Sodium 141 mEq/L (136-145) 04/13/18 12:50 Potassium 2.5 mEq/L (3.5-5.1) L 04/13/18 12:50 Chloride 106 mEq/L (98-107) 04/13/18 12:50 Carbon Dioxide 20 mEq/L (21-32) L 04/13/18 12:50 Anion Gap 17.5 (5-15) H 04/13/18 12:50 BUN 71 mg/dL (7-18) H 04/13/18 12:50 Creatinine 3.3 mg/dL (0.7-1.3) H 04/13/18 12:50 Est Cr Clr Drug Dosing 22.39 mL/min 04/13/18 12:50 Estimated GFR (MDRD) 19 mL/min (>60) 04/13/18 12:50 BUN/Creatinine Ratio 21.5 (14-18) H 04/13/18 12:50 Glucose 103 mg/dL (83-115) 04/13/18 12:50 Lactic Acid 1.0 mmol/L (0.4-2.0) 04/13/18 22:00 Calcium 8.5 mg/dL (8.5-10.1) 04/13/18 12:50 Total Bilirubin 0.3 mg/dL (0.2-1.0) 04/13/18 12:50 AST 13 U/L (15-37) L 04/13/18 12:50 ALT < 6 U/L (16-63) L 04/13/18 12:50 Alkaline Phosphatase 68 U/L (46-116) 04/13/18 12:50 Total Protein 6.0 g/dl (6.4-8.2) L 04/13/18 12:50 Albumin 2.3 g/dl (3.4-5.0) L 04/13/18 12:50 Globulin 3.7 gm/dL 04/13/18 12:50 Albumin/Globulin Ratio 0.6 (1-2) L 04/13/18 12:50 H. pylori IgG Antibody Positive (NEGATIVE) H 04/13/18 12:50 Blood Type O POSITIVE 04/13/18 12:50 Gel Antibody Screen Negative 04/13/18 12:50 Crossmatch See Detail 04/13/18 12:50 - Allergies Allergies/Adverse Reactions: Allergies Allergy/AdvReac Type Severity Reaction Status Date / Time No Known Allergies Allergy Verified 04/13/18 12:18 - Blood Blood Available: Yes - Acknowledgements Anesthesia Type Planned: General Anesthesia, MAC Pt an Appropriate Candidate for the Planned Anesthesia: Yes Alternatives and Risks of Anesthesia Discussed w Pt/Guardian: Yes Pt/Guardian Understands and Agrees with Anesthesia Plan: Yes PreAnesthesia Questionnaire HEENT History: Reports: Impaired Vision Cardiovascular History: Reports: Blood Clots/VTE/DVT, High Cholesterol, Hypertension Respiratory History: Reports: None Gastrointestinal History: Reports: None, Other (See Below) (gi bleed) Genitourinary History: Reports: Pyelonephritis, Other (See Below) Other Genitourinary History: as a child Musculoskeletal History: Reports: Back Pain, Chronic Neurological History: Reports: Neuropathy, Peripheral Endocrine/Metabolic History: Reports: None Other Hematologic History: too many RBCs per patient report but now resolved Immunologic History: Reports: None Oncologic (Cancer) History: Reports: None Dermatologic History: Reports: None - Infectious Disease History Infectious Disease History: Reports: Hepatitis C, Measles, Mumps - Past Surgical History HEENT Surgical History: Reports: Tonsillectomy Cardiovascular Surgical History: Reports: Percutaneous Transluminal Angioplasty Respiratory Surgical History: Reports: None GI Surgical History: Reports: Colonoscopy Male Surgical History: Reports: None Neurological Surgical History: Reports: None Musculoskeletal Surgical History: Reports: Amputation Other Musculoskeletal Surgeries/Procedures:: left 3rd, 4th and 5th digit Dermatological Surgical History: Reports: None - SUBSTANCE USE Smoking Status *Q: Former Smoker (quit 1 year ago) Tobacco Use Within Last Twelve Months: Cigarettes Second Hand Smoke Exposure: No Days Per Week of Alcohol Use: 0 (more frequent in the past) Recreational Drug Use History: No - HOME MEDS Home Medications: Home Meds Cephalexin [Keflex] 500 mg PO QID 04/13/18 [History] Clopidogrel [Plavix] 75 mg PO DAILY 04/13/18 [History] Cyanocobalamin (Vitamin B-12) [Vitamin B12] 2,500 mcg PO DAILY 04/13/18 [History ] Gabapentin [Neurontin] 100 mg PO TID 04/13/18 [History] Hydrochlorothiazide 25 mg PO DAILY 04/13/18 [History] Losartan [Cozaar] 100 mg PO DAILY 04/13/18 [History] Rosuvastatin Calcium [Crestor] 40 mg PO BEDTIME 04/13/18 [History] amLODIPine Besylate [Amlodipine Besylate] 5 mg PO DAILY 04/13/18 [History] tiZANidine HCl [Tizanidine HCl] 4 mg PO QPM PRN 04/13/18 [History] - CURRENT (IN HOUSE) MEDS Current Meds: Current Medications Acetaminophen (Tylenol) 650 mg PO Q4H PRN PRN Reason: Pain/Fever Last Admin: 04/13/18 17:27 Dose: 650 mg Cyanocobalamin (Vitamin B12) 2,500 mcg PO DAILY [facility] Gabapentin (Neurontin) 100 mg PO TID [facility] Last Admin: 04/13/18 22:09 Dose: 100 mg Piperacillin Sod/Tazobactam (Sod 4.5 gm/ Sodium Chloride) 100 mls @ 25 mls/hr IV Q8H [facility] Pantoprazole Sodium 80 mg/ (Sodium Chloride) 100 mls @ 10 mls/hr IV Q10H [facility] Last Admin: 04/13/18 22:01 Dose: 10 mls/hr Potassium Chloride 10 meq/ (Premix) 100 mls @ 100 mls/hr IV Q1H [facility] Stop: 04/14/18 03:44 Potassium Chloride (Klor-Con M20) 40 meq PO TID [facility] Stop: 04/15/18 15:01 Last Admin: 04/13/18 22:02 Dose: 40 meq Rosuvastatin Calcium (Crestor) 40 mg PO BEDTIME [facility] Last Admin: 04/13/18 22:02 Dose: 40 mg Sodium Chloride (Saline Flush) 10 ml FLUSH ASDIRECTED PRN PRN Reason: Keep Vein Open Last Admin: 04/13/18 12:31 Dose: 10 ml Temazepam (Restoril) 7.5 mg PO BEDTIME PRN PRN Reason: Insomnia Tizanidine HCl (Zanaflex) 4 mg PO BEDTIME [facility] Last Admin: 04/13/18 22:02 Dose: 4 mg Discontinued Medications Clopidogrel Bisulfate (Plavix) 75 mg PO DAILY [facility] Epinephrine HCl (Adrenalin) Confirm Administered Dose 2 mg .ROUTE .STK-MED ONE Stop: 04/13/18 23:37 Famotidine (Pepcid) 20 mg IVPUSH ONETIME ONE Stop: 04/13/18 12:27 Last Admin: 04/13/18 12:30 Dose: 20 mg Sodium Chloride (Normal Saline) 1,000 mls @ 999 mls/hr IV ASDIRECTED [facility] Last Admin: 04/13/18 12:33 Dose: 999 mls/hr Sodium Chloride (Normal Saline) 1,000 mls @ 250 mls/hr IV ASDIRECTED [facility] Last Admin: 04/13/18 13:41 Dose: 250 mls/hr Potassium Chloride 10 meq/ (Premix) 100 mls @ 100 mls/hr IV Q1H [facility] Stop: 04/13/18 17:44 Last Admin: 04/13/18 17:30 Dose: Not Given Sodium Chloride (Normal Saline) 100 mls @ 2 mls/hr IV ASDIRECTED [facility] Piperacillin Sod/Tazobactam (Sod 4.5 gm/ Sodium Chloride) 100 mls @ 200 mls/hr IV ONETIME ONE Stop: 04/13/18 18:44 Last Admin: 04/13/18 18:31 Dose: 200 mls/hr Sodium Chloride (Normal Saline) Confirm Administered Dose 250 mls @ as directed .ROUTE .STK-MED ONE Stop: 04/13/18 23:21 Ondansetron HCl (Zofran) 4 mg IVPUSH ONETIME ONE Stop: 04/13/18 12:27 Last Admin: 04/13/18 12:30 Dose: 4 mg Pantoprazole Sodium (Protonix Iv) 40 mg IVPUSH ONETIME ONE Stop: 04/13/18 12:43 Last Admin: 04/13/18 12:49 Dose: 40 mg Pantoprazole Sodium (Protonix Iv) 40 mg IVPUSH Q12H [facility] Pneumococcal Polyvalent Vaccine (Pneumovax 23) 0.5 ml IM .ONCE ONE Stop: 04/13/18 15:33 Sodium Chloride (Normal Saline) Confirm Administered Dose 50 ml .ROUTE .STK-MED ONE Stop: 04/13/18 23:37
[2018-04-14] MEDS ORDERED: Lidocaine 1% 4 ML ONE (00:01)
[2018-04-14] MEDS ORDERED: fentaNYL 100 MCG/2 ML SDV ONE (00:02)
[2018-04-14] MEDS ORDERED: Ketamine 500 mg/10 ML MDV ONE (00:03)
[2018-04-14] MEDS ORDERED: Midazolam 1 MG/ML 2 ML SDV ONE (00:05)
[2018-04-14] MEDS ORDERED: Albuterol 0.083% 2.5 MG/3 ML Neb Soln NEB ONE (00:12)
--- NOTE | 2018-04-14 01:07 | PCM.OPNOTE ---
- General Post-Op/Procedure Note Date of Surgery/Procedure: 04/14/18 Operative Procedure(s): egd Pre Op Diagnosis: GI bleeding Post-Op Diagnosis: Same Anesthesia Technique: MAC Primary Surgeon: Viktor Martinez EBL in mLs: 0 Complications: None Condition: Good Free Text/Narrative:: Intake & Output 04/13/18 04/13/18 04/14/18 15:59 23:59 07:59 Intake Total 0 430 0 Balance 0 430 0
[2018-04-14] MEDS ORDERED: Lactated Ringers 1,000 ML ONE (01:26)
[2018-04-14] MEDS ORDERED: Lactated Ringers 1,000 ML IV ONE (01:30)
--- NOTE | 2018-04-14 01:40 | PCM48HPAN ---
Post Anesthesia Note - EVALUATION WITHIN 48HRS OF ANESTHETIC Vital Signs in Normal Range: No (BP continues to be low. Patient non symptomatic ) Patient Participated in Evaluation: Yes Respiratory Function Stable: Yes Airway Patent: Yes Cardiovascular Function Stable: Yes Hydration Status Stable: Yes (IV LR infusing. DR Martinez in patients room) Pain Control Satisfactory: Yes Nausea and Vomiting Control Satisfactory: Yes Mental Status Recovered: Yes Pulse Rate: 56 Resp Rate: 16 Temperature: 98.1 F Blood Pressure: 68/42
[2018-04-14] MEDS ORDERED: Sodium Chloride 0.9% 250 ML ONE (01:58)
[2018-04-14] MEDS ORDERED: Piperacillin/Tazobactam 4.5 GM in Sodium Chloride 0.9% 100 ML IV SCH (02:00)
--- NOTE | 2018-04-14 03:05 | PCM.SURGPN ---
- General Info Date of Service: 04/14/18 - Patient Data Vitals - Most Recent: Last Vital Signs Temp 98 F 04/14/18 02:24 Pulse 64 04/14/18 02:24 Resp 12 04/14/18 02:24 BP 83/49 L 04/14/18 02:24 Pulse Ox 100 04/14/18 02:09 Weight - Most Recent: 76.34 kg I&O - Last 24 Hours: Intake & Output 04/13/18 04/13/18 04/14/18 15:59 23:59 07:59 Intake Total 0 430 360 Balance 0 430 360 Lab Results Last 24 Hrs: Laboratory Results - last 24 hr 04/13/18 04/13/18 04/13/18 Range/Units 12:50 12:50 12:50 WBC 18.49 H (4.23-9.07) K/mm3 RBC 2.06 L (4.63-6.08) M/mm3 Hgb 5.9 L* (13.7-17.5) gm/L Hct 18.8 L (40.1-51.0) % MCV 91.3 (79.0-92.2) fl MCH 28.6 (25.7-32.2) pg MCHC 31.4 L (32.2-35.5) g/dl RDW Std Deviation 43.0 (35.1-43.9) fL Plt Count 307 (163-337) K/mm3 MPV 10.9 (9.4-12.3) fl Neut % (Auto) 84.4 H (34.0-67.9) % Lymph % (Auto) 7.0 L (21.8-53.1) % [place] % (Auto) 7.0 (5.3-12.2) % Eos % (Auto) 0.9 (0.8-7.0) Baso % (Auto) 0.2 (0.1-1.2) % Neut # (Auto) 15.58 H (1.78-5.38) K/mm3 Lymph # (Auto) 1.30 L (1.32-3.57) K/mm3 [place] # (Auto) 1.30 H (0.30-0.82) K/mm3 Eos # (Auto) 0.17 (0.04-0.54) K/mm3 Baso # (Auto) 0.04 (0.01-0.08) K/mm3 Manual Slide Review Abnormal smear PT 11.9 (9.5-12.1) SECONDS INR 1.09 APTT 24 (24-31) SECONDS Sodium 141 (136-145) mEq/L Potassium 2.5 L (3.5-5.1) mEq/L Chloride 106 (98-107) mEq/L Carbon Dioxide 20 L (21-32) mEq/L Anion Gap 17.5 H (5-15) BUN 71 H (7-18) mg/dL Creatinine 3.3 H (0.7-1.3) mg/dL Est Cr Clr Drug Dosing 22.39 mL/min Estimated GFR (MDRD) 19 (>60) mL/min BUN/Creatinine Ratio 21.5 H (14-18) Glucose 103 (83-115) mg/dL Lactic Acid (0.4-2.0) mmol/L Calcium 8.5 (8.5-10.1) mg/dL Total Bilirubin 0.3 (0.2-1.0) mg/dL AST 13 L (15-37) U/L ALT < 6 L (16-63) U/L Alkaline Phosphatase 68 (46-116) U/L Total Protein 6.0 L (6.4-8.2) g/dl Albumin 2.3 L (3.4-5.0) g/dl Globulin 3.7 gm/dL Albumin/Globulin Ratio 0.6 L (1-2) H. pylori IgG Antibody (NEGATIVE) Blood Type Gel Antibody Screen Crossmatch 04/13/18 04/13/18 04/13/18 Range/Units 12:50 12:50 12:50 WBC (4.23-9.07) K/mm3 RBC (4.63-6.08) M/mm3 Hgb (13.7-17.5) gm/L Hct (40.1-51.0) % MCV (79.0-92.2) fl MCH (25.7-32.2) pg MCHC (32.2-35.5) g/dl RDW Std Deviation (35.1-43.9) fL Plt Count (163-337) K/mm3 MPV (9.4-12.3) fl Neut % (Auto) (34.0-67.9) % Lymph % (Auto) (21.8-53.1) % [place] % (Auto) (5.3-12.2) % Eos % (Auto) (0.8-7.0) Baso % (Auto) (0.1-1.2) % Neut # (Auto) (1.78-5.38) K/mm3 Lymph # (Auto) (1.32-3.57) K/mm3 [place] # (Auto) (0.30-0.82) K/mm3 Eos # (Auto) (0.04-0.54) K/mm3 Baso # (Auto) (0.01-0.08) K/mm3 Manual Slide Review PT (9.5-12.1) SECONDS INR APTT (24-31) SECONDS Sodium (136-145) mEq/L Potassium (3.5-5.1) mEq/L Chloride (98-107) mEq/L Carbon Dioxide (21-32) mEq/L Anion Gap (5-15) BUN (7-18) mg/dL Creatinine (0.7-1.3) mg/dL Est Cr Clr Drug Dosing mL/min Estimated GFR (MDRD) (>60) mL/min BUN/Creatinine Ratio (14-18) Glucose (83-115) mg/dL Lactic Acid 5.5 H (0.4-2.0) mmol/L Calcium (8.5-10.1) mg/dL Total Bilirubin (0.2-1.0) mg/dL AST (15-37) U/L ALT (16-63) U/L Alkaline Phosphatase (46-116) U/L Total Protein (6.4-8.2) g/dl Albumin (3.4-5.0) g/dl Globulin gm/dL Albumin/Globulin Ratio (1-2) H. pylori IgG Antibody Positive H (NEGATIVE) Blood Type O POSITIVE Gel Antibody Screen Negative Crossmatch See Detail 04/13/18 04/13/18 04/14/18 Range/Units 22:00 22:00 00:28 WBC (4.23-9.07) K/mm3 RBC (4.63-6.08) M/mm3 Hgb 8.5 L (13.7-17.5) gm/L Hct 25.2 L (40.1-51.0) % MCV (79.0-92.2) fl MCH (25.7-32.2) pg MCHC (32.2-35.5) g/dl RDW Std Deviation (35.1-43.9) fL Plt Count (163-337) K/mm3 MPV (9.4-12.3) fl Neut % (Auto) (34.0-67.9) % Lymph % (Auto) (21.8-53.1) % [place] % (Auto) (5.3-12.2) % Eos % (Auto) (0.8-7.0) Baso % (Auto) (0.1-1.2) % Neut # (Auto) (1.78-5.38) K/mm3 Lymph # (Auto) (1.32-3.57) K/mm3 [place] # (Auto) (0.30-0.82) K/mm3 Eos # (Auto) (0.04-0.54) K/mm3 Baso # (Auto) (0.01-0.08) K/mm3 Manual Slide Review PT (9.5-12.1) SECONDS INR APTT (24-31) SECONDS Sodium (136-145) mEq/L Potassium 2.8 L (3.5-5.1) mEq/L Chloride (98-107) mEq/L Carbon Dioxide (21-32) mEq/L Anion Gap (5-15) BUN (7-18) mg/dL Creatinine (0.7-1.3) mg/dL Est Cr Clr Drug Dosing mL/min Estimated GFR (MDRD) (>60) mL/min BUN/Creatinine Ratio (14-18) Glucose (83-115) mg/dL Lactic Acid 1.0 (0.4-2.0) mmol/L Calcium (8.5-10.1) mg/dL Total Bilirubin (0.2-1.0) mg/dL AST (15-37) U/L ALT (16-63) U/L Alkaline Phosphatase (46-116) U/L Total Protein (6.4-8.2) g/dl Albumin (3.4-5.0) g/dl Globulin gm/dL Albumin/Globulin Ratio (1-2) H. pylori IgG Antibody (NEGATIVE) Blood Type Gel Antibody Screen Crossmatch Med Orders - Current: Current Medications Acetaminophen (Tylenol) 650 mg PO Q4H PRN PRN Reason: Pain/Fever Last Admin: 04/13/18 17:27 Dose: 650 mg Cyanocobalamin (Vitamin B12) 2,500 mcg PO DAILY [facility] Gabapentin (Neurontin) 100 mg PO TID [facility] Last Admin: 04/13/18 22:09 Dose: 100 mg Piperacillin Sod/Tazobactam (Sod 4.5 gm/ Sodium Chloride) 100 mls @ 25 mls/hr IV Q8H [facility] Pantoprazole Sodium 80 mg/ (Sodium Chloride) 100 mls @ 10 mls/hr IV Q10H [facility] Last Admin: 04/13/18 22:01 Dose: 10 mls/hr Potassium Chloride 10 meq/ (Premix) 100 mls @ 100 mls/hr IV Q1H [facility] Stop: 04/14/18 03:44 Last Admin: 04/13/18 23:50 Dose: 100 mls/hr Potassium Chloride (Klor-Con M20) 40 meq PO TID [facility] Stop: 04/15/18 15:01 Last Admin: 04/13/18 22:02 Dose: 40 meq Rosuvastatin Calcium (Crestor) 40 mg PO BEDTIME [facility] Last Admin: 04/13/18 22:02 Dose: 40 mg Sodium Chloride (Saline Flush) 10 ml FLUSH ASDIRECTED PRN PRN Reason: Keep Vein Open Last Admin: 04/13/18 12:31 Dose: 10 ml Temazepam (Restoril) 7.5 mg PO BEDTIME PRN PRN Reason: Insomnia Tizanidine HCl (Zanaflex) 4 mg PO BEDTIME [facility] Last Admin: 04/13/18 22:02 Dose: 4 mg Discontinued Medications Albuterol (Proventil Neb Soln) 2.5 mg NEB ONETIME ONE Stop: 04/14/18 00:13 Last Admin: 04/14/18 00:21 Dose: 2.5 mg Clopidogrel Bisulfate (Plavix) 75 mg PO DAILY [facility] Epinephrine HCl (Adrenalin) Confirm Administered Dose 2 mg .ROUTE .STK-MED ONE Stop: 04/13/18 23:37 Famotidine (Pepcid) 20 mg IVPUSH ONETIME ONE Stop: 04/13/18 12:27 Last Admin: 04/13/18 12:30 Dose: 20 mg Fentanyl (Sublimaze) Confirm Administered Dose 100 mcg .ROUTE .STK-MED ONE Stop: 04/14/18 00:03 Sodium Chloride (Normal Saline) 1,000 mls @ 999 mls/hr IV ASDIRECTED [facility] Last Admin: 04/13/18 12:33 Dose: 999 mls/hr Sodium Chloride (Normal Saline) 1,000 mls @ 250 mls/hr IV ASDIRECTED [facility] Last Admin: 04/13/18 13:41 Dose: 250 mls/hr Potassium Chloride 10 meq/ (Premix) 100 mls @ 100 mls/hr IV Q1H [facility] Stop: 04/13/18 17:44 Last Admin: 04/13/18 17:30 Dose: Not Given Sodium Chloride (Normal Saline) 100 mls @ 2 mls/hr IV ASDIRECTED [facility] Piperacillin Sod/Tazobactam (Sod 4.5 gm/ Sodium Chloride) 100 mls @ 200 mls/hr IV ONETIME ONE Stop: 04/13/18 18:44 Last Admin: 04/13/18 18:31 Dose: 200 mls/hr Sodium Chloride (Normal Saline) Confirm Administered Dose 250 mls @ as directed .ROUTE .STK-MED ONE Stop: 04/13/18 23:21 Last Admin: 04/13/18 23:45 Dose: 25 mls/hr Lidocaine HCl (Xylocaine-Mpf 1%) Confirm Administered Dose 4 mls @ as directed .ROUTE .STK-MED ONE Stop: 04/14/18 00:02 Lactated Ringer's (Ringers, Lactated) Confirm Administered Dose 1,000 mls @ as directed .ROUTE .STK-MED ONE Stop: 04/14/18 01:27 Lactated Ringer's (Ringers, Lactated) 1,000 mls @ 999 mls/hr IV ONETIME ONE Stop: 04/14/18 02:30 Last Admin: 04/14/18 02:29 Dose: 999 mls/hr Sodium Chloride (Normal Saline) Confirm Administered Dose 250 mls @ as directed .ROUTE .STK-MED ONE Stop: 04/14/18 01:59 Ketamine HCl (Ketalar) Confirm Administered Dose 500 mg .ROUTE .STK-MED ONE Stop: 04/14/18 00:04 Midazolam HCl (Versed 1 Mg/Ml) Confirm Administered Dose 2 mg .ROUTE .STK-MED ONE Stop: 04/14/18 00:06 Ondansetron HCl (Zofran) 4 mg IVPUSH ONETIME ONE Stop: 04/13/18 12:27 Last Admin: 04/13/18 12:30 Dose: 4 mg Pantoprazole Sodium (Protonix Iv) 40 mg IVPUSH ONETIME ONE Stop: 04/13/18 12:43 Last Admin: 04/13/18 12:49 Dose: 40 mg Pantoprazole Sodium (Protonix Iv) 40 mg IVPUSH Q12H [facility] Pneumococcal Polyvalent Vaccine (Pneumovax 23) 0.5 ml IM .ONCE ONE Stop: 04/13/18 15:33 Sodium Chloride (Normal Saline) Confirm Administered Dose 50 ml .ROUTE .STK-MED ONE Stop: 04/13/18 23:37 - Problem List Review Problem List Initiated/Reviewed/Updated: Yes - My Orders Last 24 Hours: Active Orders 24 hr Category Date Time Status Admission Status [Patient Status] [ADT] Routine ADT 04/13/18 14:31 Active Patient Status Manage Transfer [TRANSFER] Routine ADT 04/14/18 01:08 Active Patient Status [ADT] Routine ADT 04/14/18 01:37 Active Notify Provider Consults [RC] ASDIRECTED Care 04/13/18 16:53 Active RT Aerosol Therapy [RC] ASDIRECTED Care 04/14/18 00:12 Active Ready for Discharge [RC] PER UNIT ROUTINE Care 04/14/18 03:04 Ordered Verify Patient Consent Obtain [RC] ASDIRECTED Care 04/13/18 23:15 Active Consult to Occupational Therapy [OT Evaluation and Cons 04/13/18 18:12 Active Treatment] [CONS] Routine Consult to Physical Therapy [PT Evaluation and Cons 04/13/18 18:11 Active Treatment] [CONS] Routine Consult to Physician [CONS] Routine Cons 04/13/18 17:00 Active NPO [Nothing Per Oral Diet] [DIET] Diet 04/14/18 Breakfast Active BMP [BASIC METABOLIC PANEL,BMP] [CHEM] DAILY Lab 04/14/18 05:00 Ordered BMP [BASIC METABOLIC PANEL,BMP] [CHEM] DAILY Lab 04/15/18 05:00 Ordered BMP [BASIC METABOLIC PANEL,BMP] [CHEM] DAILY Lab 04/16/18 05:00 Ordered BMP [BASIC METABOLIC PANEL,BMP] [CHEM] DAILY Lab 04/17/18 05:00 Ordered CBC WITH AUTO DIFF [HEME] DAILY Lab 04/14/18 05:00 Ordered CBC WITH AUTO DIFF [HEME] DAILY Lab 04/15/18 05:00 Ordered CBC WITH AUTO DIFF [HEME] DAILY Lab 04/16/18 05:00 Ordered CBC WITH AUTO DIFF [HEME] DAILY Lab 04/17/18 05:00 Ordered CRP [C-REACTIVE PROTEIN] [CHEM] DAILY Lab 04/14/18 05:00 Ordered CRP [C-REACTIVE PROTEIN] [CHEM] DAILY Lab 04/15/18 05:00 Ordered CRP [C-REACTIVE PROTEIN] [CHEM] DAILY Lab 04/16/18 05:00 Ordered CRP [C-REACTIVE PROTEIN] [CHEM] DAILY Lab 04/17/18 05:00 Ordered LACTIC ACID [CHEM] DAILY Lab 04/14/18 05:00 Ordered LACTIC ACID [CHEM] DAILY Lab 04/15/18 05:00 Ordered LACTIC ACID [CHEM] DAILY Lab 04/16/18 05:00 Ordered LACTIC ACID [CHEM] DAILY Lab 04/17/18 05:00 Ordered PACKED CELLS [RED BLOOD CELLS LP] [BBK] Stat Lab 04/13/18 12:50 Results PACKED CELLS [RED BLOOD CELLS LP] [BBK] Stat Lab 04/14/18 00:24 Ordered PATIENT RETYPE [BBK] Stat Lab 04/13/18 12:50 Results TYPE AND SCREEN [BBK] Stat Lab 04/13/18 12:50 Results TYPE AND SCREEN [BBK] Stat Lab 04/14/18 00:24 Ordered Acetaminophen [Tylenol] Med 04/13/18 17:10 Active 650 mg PO Q4H PRN Cyanocobalamin (Vitamin B12) [Vitamin B12] Med 04/14/18 09:00 Active 2,500 mcg PO DAILY Gabapentin [Neurontin] Med 04/13/18 21:00 Active 100 mg PO TID Pantoprazole [ProTONIX IV] 80 mg Med 04/13/18 21:15 Active Sodium Chloride 0.9% [Normal Saline] 100 ml IV Q10H Piperacillin/Tazobactam [Zosyn] 4.5 gm Med 04/14/18 02:00 Active Sodium Chloride 0.9% [Normal Saline] 100 ml IV Q8H Potassium Chloride [KCl 10 MEQ in Water 100 ML] 10 meq Med 04/13/18 23:45 Active Premix Bag 1 bag IV Q1H Potassium Chloride [Klor-Con M20] Med 04/13/18 21:00 Active 40 meq PO TID Rosuvastatin [Crestor] Med 04/13/18 21:00 Active 40 mg PO BEDTIME Sodium Chloride 0.9% [Saline Flush] Med 04/13/18 12:17 Active 10 ml FLUSH ASDIRECTED PRN Temazepam [Restoril] Med 04/13/18 18:08 Active 7.5 mg PO BEDTIME PRN tiZANidine [Zanaflex] Med 04/13/18 21:00 Active 4 mg PO BEDTIME Peripheral IV Insertion Adult [OM.PC] Stat Ot 04/13/18 12:18 Ordered Schedule Procedure [COMM] Stat Ot 04/13/18 23:16 Ordered Transfuse PRBC [Transfuse Red Blood Cells] [COMM] Stat Ot 04/13/18 14:03 Ordered Transfuse PRBC [Transfuse Red Blood Cells] [COMM] Stat Ot 04/13/18 23:13 Ordered Transfuse PRBC [Transfuse Red Blood Cells] [COMM] Stat Ot 04/13/18 23:27 Ordered Transfuse Red Blood Cells [COMM] Routine Ot 04/13/18 19:54 Ordered Resuscitation Status Routine Resus Stat 04/13/18 15:42 Ordered Medication Orders Acetaminophen (Tylenol) 650 mg PO Q4H PRN PRN Reason: Pain/Fever Last Admin: 04/13/18 17:27 Dose: 650 mg Cyanocobalamin (Vitamin B12) 2,500 mcg PO DAILY [facility] Gabapentin (Neurontin) 100 mg PO TID [facility] Last Admin: 04/13/18 22:09 Dose: 100 mg Piperacillin Sod/Tazobactam (Sod 4.5 gm/ Sodium Chloride) 100 mls @ 25 mls/hr IV Q8H [facility] Pantoprazole Sodium 80 mg/ (Sodium Chloride) 100 mls @ 10 mls/hr IV Q10H [facility] Last Admin: 04/13/18 22:01 Dose: 10 mls/hr Potassium Chloride 10 meq/ (Premix) 100 mls @ 100 mls/hr IV Q1H [facility] Stop: 04/14/18 03:44 Last Admin: 04/13/18 23:50 Dose: 100 mls/hr Potassium Chloride (Klor-Con M20) 40 meq PO TID ROSANNA Stop: 04/15/18 15:01 Last Admin: 04/13/18 22:02 Dose: 40 meq Rosuvastatin Calcium (Crestor) 40 mg PO BEDTIME ROSANNA Last Admin: 04/13/18 22:02 Dose: 40 mg Sodium Chloride (Saline Flush) 10 ml FLUSH ASDIRECTED PRN PRN Reason: Keep Vein Open Last Admin: 04/13/18 12:31 Dose: 10 ml Temazepam (Restoril) 7.5 mg PO BEDTIME PRN PRN Reason: Insomnia Tizanidine HCl (Zanaflex) 4 mg PO BEDTIME [facility]AN[facility] Last Admin: 04/13/18 22:02 Dose: 4 mg - Plan Plan (Free Text/Narrative):: transfer summary dictated JUSTINE
[2018-04-14] MEDS ORDERED: Cyanocobalamin (Vitamin B12) 1,000 MCG Tab PO SCH (09:00)
[2018-04-14] MEDS ORDERED: Clopidogrel 75 MG Tab PO SCH (09:00)
[2018-04-14] MEDS: Potassium Chloride 10 MEQ in Premix Bag 1 BAG IV SCH ×3 (09:44→09:46)
--- NOTE | 2018-04-15 10:46 | OR ---
DATE OF OPERATION: 04/12/2018 SURGEON: Viktor Martinez MD PREOPERATIVE DIAGNOSIS: Upper gastrointestinal bleed. POSTOPERATIVE DIAGNOSIS: Upper gastrointestinal bleed. OPERATION PERFORMED: Esophagogastroduodenoscopy done under IV sedation. FINDINGS: In the duodenal bulb, in the anterior surface, a large ulcer with a whitish eschar. It was not actively bleeding. No visible vessel was noted, but the eschar was not irrigated off. There was also an antral ulcer on the lesser curvature that was not bleeding and there were superficial erosions in the esophagus. 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 The esophagus and the fundus and body of the stomach did not show any acute pathology as did the second portion of the duodenum. INDICATIONS: The patient developed GI bleed as represented by a large bloody stool. He dropped his blood pressure. He was resuscitated from a blood pressure 70 to 90 and his potassium was repleted, and he was given additional blood and fluid and brought to the operating room for EGD. DESCRIPTION OF PROCEDURE: The patient taken to the operating room, placed in a supine position. Connected to monitoring and equipment. Given IV sedation. Placed in the left lateral position. A bite block was placed. A video Olympus gastroscope was then placed down the oropharynx. Under direct vision, threaded past the cricopharyngeus, down the esophagus, into the stomach. The stomach was insufflated and the scope passed through the pylorus to the second portion of the duodenum. Second portion of the duodenum was normal, but the duodenal bulb showed an ulcer with a whitish eschar. No visible vessel, but the eschar was judged to be best left in place since there were no active means to stop bleeding if it should start. In the antrum was an ulcer, also in the lesser curvature. It was not bleeding. There was no sign of blood in the stomach or in the duodenum or in the antrum. A J-maneuver showed an incompetent hiatus and the scope withdrawn in the GE junction, it showed some superficial erosions. Rest of the esophagus was unremarkable. The patient tolerated the procedure and sent to recovery room in a stable condition. ANESTHESIA: ESTIMATED BLOOD LOSS: MMODAL /[id number]
--- NOTE | 2018-04-15 13:21 | CONS ---
CONSULTING PHYSICIAN: Viktor Martinez MD DATE OF CONSULTATION: 04/13/2018 HISTORY OF PRESENT ILLNESS: The patient has had a bloody bowel movement. The patient states it occurred at approximately 10:30. Nurses noted that he had a drop in blood pressure, but was stabilized. The nurses were then directed by the hospitalist to call me. His hemoglobin after 2 units has gone up to 8.5. The patient has another unit in the blood bank. The patient has had prior to coming into the hospital today another bloody bowel movement. Currently, his blood pressure is 91/70, pulse 82. He is alert, cooperative, and mentation is normal. Skin is warm and dry. ASSESSMENT: Gastrointestinal bleed with drop in blood pressure, concerned for active duodenal bleeder. PLAN: To proceed with emergency EGD, possible use a Gold Probe, possible need for laparotomy. Discussed this with the patient, especially with the need to open up to control bleeder in duodenum. The patient understands and consents. ANTONIETA /[id number]
--- NOTE | 2018-04-15 13:39 | DISCH ---
ADMISSION DATE: 04/13/2018 DISCHARGE DATE: 04/14/2018 TRANSFER SUMMARY HISTORY OF PRESENT ILLNESS: This is a 72-year-old who came with [facility] after fainting on the stool and complaint of dizzy. He has been having black tarry stools for the last 6 days and episode initially of vomiting. He came in with a low blood pressure of 70s. He was resuscitated. His hemoglobin was 6.7. The patient was then admitted to the hospital. His past medical history was that of peripheral vascular disease and a history of back pain in the upper part for the last month, for which he has been treated with Aleve. He is also on Plavix for his peripheral vascular disease. PHYSICAL EXAMINATION: VITAL SIGNS: Examination on admission after resuscitation revealed the patient with a blood pressure of 92/___, temperature 97, pulse 70. EYES: Sclerae white. Extraocular muscle motion normal. Oral cavity healthy. NECK: Supple. LUNGS: Clear except distant breath sounds from previous smoking. ABDOMEN: Soft. No tenderness, guarding, or rebound. UPPER EXTREMITIES: Unremarkable. LOWER EXTREMITIES: Show some peripheral neuropathy and some dry gangrene in the right foot and heel. HOSPITAL COURSE: The patient was placed in the hospital by the hospitalist and surgical consultation was obtained. His hemoglobin was initially low at 5.9. He was given 2 units of blood and it came up to 8.5 and placed on lactated Ringer's. His H. pylori was positive. At about 11 o'clock in the evening, he had a bloody stool. It dropped his pressure in the 70s. The patient was then brought to the operating room for upper GI endoscopy showing a duodenal ulcer which was not bleeding at that time, gastric ulcer in the antrum, and some esophageal erosions. It was elected at this time to bring him back to the floor where resuscitation was continued with another 2 units of blood and 2 units of lactated Ringer's where his blood pressure stabilized at 90. It was elected to transfer him to a higher center where ICU and GI consultation was available in addition to angiography if necessary. The patient agreed to this and [place] Dr. Vora [place] him in transfer. TRANSFER DIAGNOSIS: Gastrointestinal bleeding status post resuscitation. CONDITION ON TRANSFER: Stable with blood pressure systolic 92/50. He is alert and cooperative. DIET: N.p.o. MEDICATIONS: Continue his present medication which would include proton pump drip and IV resuscitation with lactated Ringer's. CONDITION ON DISCHARGE: Stable, n.p.o. DIAGNOSES: Gastrointestinal bleed secondary to duodenal ulcer aggravated by use of Aleve, history of peripheral vascular disease, hypertension, and past history of smoking with some chronic obstructive lung disease. ANTONIETA /[id number]
== END 2018-04-14 02:58 | DRG 378 ==
LOC: JD.ED 12:10 → JD.MS 14:31
PROVIDERS: ADMIT Internal Medicine Cardiovascular Disease; ATTEND Internal Medicine Cardiovascular Disease
PROC: 30233N1 Transfusion of Nonautologous Red Blood Cells into Peripheral Vein, Percutaneous Approach (ICD-10-PCS; principal; 2018-04-13)
PROC: 0DJ08ZZ Inspection of Upper Intestinal Tract, Via Natural or Artificial Opening Endoscopic (ICD-10-PCS; 2018-04-14)
DX: K26.4 Chronic or unspecified duodenal ulcer with hemorrhage (principal); N17.9 Acute kidney failure, unspecified; K22.10 Ulcer of esophagus without bleeding; H54.7 Unspecified visual loss; E78.00 Pure hypercholesterolemia, unspecified; I10 Essential (primary) hypertension; G89.29 Other chronic pain; M54.9 Dorsalgia, unspecified; G62.9 Polyneuropathy, unspecified; I95.9 Hypotension, unspecified; I73.9 Peripheral vascular disease, unspecified; L08.89 Other specified local infections of the skin and subcutaneous tissue; D64.9 Anemia, unspecified; E87.6 Hypokalemia; E86.0 Dehydration; K25.9 Gastric ulcer, unspecified as acute or chronic, without hemorrhage or perforation; Z86.19 Personal history of other infectious and parasitic diseases; Z89.422 Acquired absence of other left toe(s); Z79.899 Other long term (current) drug therapy; Z79.02 Long term (current) use of antithrombotics/antiplatelets; Z86.718 Personal history of other venous thrombosis and embolism; Z87.891 Personal history of nicotine dependence
CPT/HCPCS: 36415; 36430; 80053; 83605; 84132; 85014; 85018; 85025; 85610; 85730; 86677; 93005; 94640; A9270-GY; C9113; J0171; J2001; J2250; J2405; J2543; J3010; J3480; J7030; J7040; J7050; J7120; P9016